=== PATIENT | male | born 1955 | race Caucasian/White ===

== ENCOUNTER 2018-05-01 17:52 | Observation (INO) | payer OTHER ==
[2018-05-01 17:59] VITALS: BMI 34.0
[2018-05-01] MEDS ORDERED: ACETAMINOPHEN 1000 MG/100 ML VIAL (NON FORMULARY) IVPB ONE (18:44)
[2018-05-01 18:48] LABS: BASO % 1.1 % (0-2.0); EOS % 3.7 % (0-4.5); HEMATOCRIT 45.2 % (35.4-49); LYMPH % 28.1 % (8-40); MCH 30.1 pg (25.7-33.7); MCHC 35.5 g/dl (32.0-35.9); MEAN CELL VOLUME 84.8 fl (80-96); MEAN PLT VOLUME 9.2 fl (7.5-11.1); MONO % 7.2 % (3.8-10.2); NEUT % 59.9 % (42.8-82.8); PLATELET COUNT 194 K/MM3 (134-434); RBC 5.33 M/mm3 (4.00-5.60); RDW 13.1 % (11.9-15.9); WHITE BLOOD COUNT 9.5 K/mm3 (4.0-10.0)
[2018-05-01] MEDS ORDERED: ACETAMINOPHEN INJECTION 100 ML IVPB ONE (18:55)
--- NOTE | 2018-05-01 19:04 | PDOC ---
History of Present Illness - General Chief Complaint: Weakness Stated Complaint: PAIN Time Seen by Provider: 05/01/18 18:13 History Source: Patient Exam Limitations: No Limitations - History of Present Illness Initial Comments: 05/01/18 18:58 The patient is a 62M with a PMH of HTN, HLD, who presents to the ER with complaints of neck pain. The patient states that he was in his normal state of health until around 1700 today, when he developed neck pain. He states that he became "restless" with his neck pain. He called EMS and waited outside for EMS to arrive. Upon EMS's arrival, he states that he developed L sided weakness. He currently complains of L sided weakness and the inability to stand or move on his own. He denies fever, chills, CP, SOB. tPA Exclusion Checklist 0-3hr - Time Elapsed Date last known well: 05/01/18 Time last known well: 17:00 Elaspsed time: Day(s) and 6 Hour(s) and 1 Minutes - Thrombolytic Therapy Candidate Is the patient eligible for Thrombolytic Therapy?: Yes - Exclusion Criteria 0-3hr SBP greater than 185 or DBP greater than 110mmHg despite tx: No Recent IC/spinal surgery,head trauma or stroke w/in last 3mo: No Hx of previous IC hemorrhage, IC neoplasm, AVM or aneurysm: No Active internal bleeding: No Blding diathesis(low plt ct, inc PTT,INR>1.7 or use of NOAC): No Symptoms suggest subarachnoid hemorrhage: No CT demonstrates multilobar infarct(>1/3 cerebral hemiphere): No Arterial puncture at noncompressible site in previous 7 days: No Blood glucose concentration less than 50mg/dL (2.7mmol/L): No - Relative Exclusion Criteria 0-3h Rapid improvement: Yes - Ineligibility reason(s) Reasons No tPA given: See reason(s) noted above (Symptoms not reproducible consistently) NIH Stroke Scale - Last Known Well Date/Time & Onset Date Last Known Well: 05/01/18 Time Last Known Well: 17:00 - Initial Evaluation Level of consciousness: Alert Ask patient the month and their age: Answers both correctly Ask patient to open & close eyes; make fist and let go: Obeys both correctly Best gaze (horizontal eye movement): Normal Visual field testing: No visual field loss Facial paresis (Show teeth/raise eyebrows/close eyes tight): Normal symmetrical movement Motor Function: Left Arm: No effort against gravity Motor Function: Right Arm: Normal (extends arm 90 (or 45) degrees for 10 seconds without drift Motor Function: Left Leg: No effort against gravity Motor Function: Right Leg: Normal (extends leg 30 degrees for 5 seconds without drift) Limb Ataxia: Present in two limbs Sensory(Use pinprick test arms,legs,trunk,face/side to side): Normal Best language (Describe picture, name items, read sentences): No Aphasia Dysarthria (read several words): Normal articulation Extinction and Inattention: No abnormality - Total Score NIH Stroke Scale Score: 8 Past History - Past Medical History Allergies/Adverse Reactions: Allergies Allergy/AdvReac Type Severity Reaction Status Date / Time simvastatin [From Zocor] Allergy Verified 05/01/18 17:59 Sulfa (Sulfonamide Allergy Verified 05/01/18 17:59 Antibiotics) Home Medications: Ambulatory Orders Atorvastatin Ca [Lipitor] 40 mg PO HS 05/01/18 Carvedilol 12.5 mg PO BID 05/01/18 Prasugrel HCl 10 mg PO DAILY 05/01/18 Valsartan/Hydrochlorothiazide [Valsartan-Hctz 320-12.5 mg Tab] 1 each PO DAILY 05/01/18 Cardiac Disorders: Yes ([place]) COPD: No HTN: Yes Hypercholesterolemia: Yes - Surgical History Cardiac Surgery: Yes (STENT X2) - Immunization History Immunization Up to Date: No - Suicide/Smoking/Psychosocial Hx Smoking History: Never smoked Have you smoked in the past 12 months: No Information on smoking cessation initiated: No Hx Alcohol Use: No Drug/Substance Use Hx: No Review of Systems - Review of Systems Able to Perform ROS?: Yes Is the patient limited Greenlandic proficient: No Constitutional: No: Chills, Fever HEENTM: No: Eye Pain, Blurred Vision Respiratory: No: Cough, Shortness of Breath Cardiac (ROS): No: Chest Pain, Palpitations ABD/GI: No: Nausea, Vomiting : No: Burning, Dysuria Musculoskeletal: Yes: Neck Pain (midline). No: Back Pain Neurological: Yes: Weakness (L sided). No: Headache, Numbness, Tingling *Physical Exam - Vital Signs Last Vital Signs Temp Pulse Resp BP Pulse Ox 98.0 F 79 16 154/114 H 96 05/01/18 17:55 05/01/18 17:55 05/01/18 17:55 05/01/18 17:55 05/01/18 17:55 - Physical Exam Comments: 05/01/18 19:04 GENERAL: Well developed, well nourished. Awake and alert. No acute distress. HEENT: Normocephalic, atraumatic. Hearing grossly normal. Moist mucous membranes. PERRLA, EOMI. No conjunctival pallor. Sclera are non-icteric. NECK: Supple. Limited ROM. No JVD. Midline tenderness to palpation CARDIOVASCULAR: Regular rate and rhythm. No murmurs, rubs, or gallops. . PULMONARY: No evidence of respiratory distress. Lungs clear to auscultation bilaterally. No wheezing, rales or rhonchi. ABDOMINAL: Soft. Non-tender. Non-distended. No rebound or guarding. GENITOURINARY: No CVA tenderness bilaterally. MUSCULOSKELETAL: Normal range of motion at all joints. No bony deformities or tenderness. EXTREMITIES: No cyanosis. No clubbing. No edema. No calf tenderness or swelling. SKIN: Warm and dry. Normal capillary refill. No rashes. No jaundice. NEUROLOGICAL: Alert, awake, appropriate. Cranial nerves 2-12 intact. No deficits to light touch and temperature in face, upper extremities and lower extremities. 5/5 strength in deltoids, biceps, triceps, quadriceps, hamstrings, and gastrocnemius on R side. 3/5 strength in deltoids, biceps, triceps, quadriceps, hamstrings, and gastrocnemius on L side. Normal speech. Gait is not observable. PSYCHIATRIC: Cooperative. Good eye contact. Appropriate mood and affect. Moderate Sedation - Procedure Monitoring Vital Signs: Procedure Monitoring Vital Signs Temperature 98.0 F 05/01/18 17:55 Pulse Rate 79 05/01/18 17:55 Respiratory Rate 16 05/01/18 17:55 Blood Pressure 154/114 H 05/01/18 17:55 O2 Sat by Pulse Oximetry (%) 96 05/01/18 17:55 ED Treatment Course - LABORATORY CBC & Chemistry Diagram: 05/01/18 18:37 05/01/18 18:37 - RADIOLOGY Radiology Studies Ordered: Category Date Time Status BRAIN CTA [CT] Stat CT Scan 05/01/18 18:28 Ordered NECK CTA [CT] Stat CT Scan 05/01/18 18:28 Ordered CHEST X-RAY PORTABLE* [RAD] Stat Radiology 05/01/18 18:28 Taken Medical Decision Making - Medical Decision Making 05/01/18 19:06 The patient is a 62M with a PMH of HTN and HLD who presents to the ER with sudden onset weakness w/ neck pain concerning for dissection. Of note, the patient has intentional movement away from pain on both sides, equally. He seems well appearing when distracted. Due to his medical history and story, vertebral artery dissection must be ruled out. Giving pain medication and will obtain CT's. Pending labs and imaging. There is a very small concern for TIA due to the sudden onset of symptoms. However, the patient has muscle tone with distraction on exam but he refuses/ cannot stand up on his own. 05/01/18 19:40 Pt had Cr of 1.4. Signed for CTA. Pt reassessed in CT and states that his symptoms have resolved. Airport Attendant strength was 5/5 compared to weaker earlier. Pending CTA. CXR negative on preliminary read. CBC CMP WNL except for Cr which is 1.4. 05/01/18 21:38 Pending CTA read. 05/01/18 22:46 CTA negative. Case d/w Neuro, Dr. Pratt, who agrees with obs. Will place order for MRI. Pt endorsed to Dr. Soria for admission. *DC/Admit/Observation/Transfer Diagnosis at time of Disposition: TIA (transient ischemic attack) - Discharge Dispostion Condition at time of disposition: Guarded Decision to Admit order: Yes - Referrals - Patient Instructions - Post Discharge Activity
[2018-05-01 19:25] LABS: ALK PHOS 95 U/L (45-117); ANION GAP 9 MMOL/L (8-16); BILIRUBIN,TOTAL 0.7 mg/dL (0.2-1); BLOOD UREA NITROGEN 21 mg/dL (7-18); CALCIUM 9.3 mg/dL (8.5-10.1); CHLORIDE 98 mmol/L (98-107); CO2 28 mmol/L (21-32); CREATININE 1.4 mg/dL (0.55-1.3); POTASSIUM 4.1 mmol/L (3.5-5.1); SGOT/AST 12 U/L (15-37); SGPT/ALT 39 U/L (13-61); SODIUM 135 mmol/L (136-145); TOT PROT 7.8 g/dl (6.4-8.2)
[2018-05-01 19:28] LABS: GLUCOSE,RANDOM 431 mg/dL (74-106)
[2018-05-01] MEDS ORDERED: SODIUM CHLORIDE 0.9% 1000 ML INFUS.BAG IV ONE ×2 (19:41→23:05)
[2018-05-01] MEDS ORDERED: KETOROLAC TROMETHAMINE 30 MG/1 ML VIAL IVPUSH ONE (20:29)
[2018-05-01] MEDS ORDERED: KETOROLAC TROMETHAMINE 30 MG/1 ML VIAL ONE (20:30)
--- NOTE | 2018-05-01 20:37 | PDOC ---
Attending Attestation - Resident Resident Name: Michael Hall - ED Attending Attestation I have performed the following: I have examined & evaluated the patient, The case was reviewed & discussed with the resident, I agree w/resident's findings & plan, Exceptions are as noted - Medical Decision Making 05/01/18 22:58 62-year-old male developed neck pain and then developed left arm and leg weakness. He's never had any prior episodes of this. CAT scan of the head did not show any acute intracranial pathology Patient denies being diabetic and states that the highest glucose he ever had was 125. [id number] this evening the pt's left sided weakness resolved shortly after it began and his NIHSS is zero currently imp TIA,hyerglycemia <Oriana Lira - Last Filed: 05/01/18 22:58> - HPI HPI: 05/01/18 21:48 The patient is a 62 year old male, with a significant past medical history of HTN and HLD, who presents to the emergency department with, neck pain and left sided weakness. Allergies: Simvastatin, Sulfa - Physicial Exam PE: 05/01/18 21:48 GENERAL: Well-appearing, well-nourished. No apparent distress. HEENT: Normocephalic, atraumatic. PERRL, EOM intact. CARDIOVASCULAR: Normal S1, S2. Regular rate and rhythm. PULMONARY: Clear to auscultation bilaterally. ABDOMEN: Soft, non-distended, non-tender. EXTREMITIES: Normal ROM in all four extremities. No gross deformities. SKIN: Warm, dry. No rash NEUROLOGICAL: No focal neurological deficits. - Medical Decision Making 05/01/18 22:[address] Pratt neuro penetration tester, awaiting call back. Patient will be admitted to hospitalist for further evaluation. <Elizabeth Rashid - Last Filed: 05/02/18 01:36> Attestations - Attestations 05/01/18 21:48 Documentation prepared by Elizabeth Rashid, acting as behavioral medical director for Oriana Lira MD. <Elizabeth Rashid - Last Filed: 05/02/18 01:36>
--- NOTE | 2018-05-01 23:00 | PN ---
Teaching Attending Note Name of Resident: Merly Ha ATTENDING PHYSICIAN STATEMENT I saw and evaluated the patient. I reviewed the resident's note and discussed the case with the resident. I agree with the resident's findings and plan as documented. SUBJECTIVE: Seen and examined; please refer to resident documentation for further historical information. Briefly, this is a 62 y/o male presenting to the ER with neck pain and L-sided weakness. Neck pain at 5PM at base of neck radiating to shoulder blades. Sharp, constant, nonburning, aleviated by raising his arms. Stated pain ws severe in nature. No headaches, dizziness. L-sided weakness started in the ER with LUE/LLE weakness; needed assist from staff to xfer. Was sudden. No facial droop, slurred speech, etc. NIHSS 0 at this juncture; initial per ED documentation. 10 sys ROS done and negative aside from HPI PMH (HTN, HLD, CAD s/p stent @ [facility] 4 years ago), PSH, Social hx, Family hx reviewed Medication reconciliation pending (coreg, atorva, valsartan/hctz/prasugrel) OBJECTIVE: 10 sys ROS done and negative aside from HPI NAD, AAO, resting comfortably in bed RRR s1/2 no mgr NC AT EOMI PERRLA Lungs CTAB, w/ sym exp NT ND +BS Normal mood, appropriate behavior Labs show normal CBC, Cr 1.4, glucose 431 CTA head and neck reviewed; unremarkable study with neuro findings but incidentally found 8mm pulmonary nodule RUL and recommended further CT to evaluate CXR reviewed EKG reviewed ASSESSMENT AND PLAN: Patient presents with neck pain and L-sided weakness (resolved); found to have hypertensive urgency vs. emergency 1) L-sided weakness, r/o TIA -Check MRI, echo, consult neurology. No need for dopplers as had CTA which didn 't show significant stenosis -Neurology is aware of the patient and will see him in the AM -Symptoms resolved. Neuro checks and seizure precuations. 2) HTN Urgency vs. Emergency -Given the timing in relation to the symptoms it is less likely that this is an emergency as the spike to 180 wasn't at the same time of the L-sided weakness. -Continue coreg, use PRNs for now, and monitor; titrate up if needed but has been in 150s. He had slightly elevated creatinine to 1.4 and is on nephrotoxic med at home with valsartan/HCTZ. Will hold that for now and resume when clinically appropriate. -Checking echo 3) Neck Pain -Reviewed CTA; no new issues. Followup with neuro to see if they wish for any neck MRI but denies radiculopathy, etc. 4) HTN -Discussed #2 5) HLD -Continue home statin; check lipids 6) Hx CAD -Continue BB 7) Elevated Cr -Hydrated in ER; followup repeat and decide how to proceed with the valsartan/ HCTZ combo -Has reasons to have CKD (likely DM, uncontrolled HTN, obesity, etc.) 8) Likely DM with hyperglycemia -Check A1c; SSI and start MTF if needed prior to DC 9) Obesity -Quality Facilitator prior to DC 10) Pulmonary Nodule -8mm RUL; FU OP with chest CT as recommended FENA -PO fluids -PRN replete -Heart healthy -As tolerated; PT consult Full Code
[2018-05-01] MEDS ORDERED: INSULIN REGULAR HUMAN 100 UNITS/ML *VIAL ONE (23:29)
--- NOTE | 2018-05-01 23:45 | HP ---
CHIEF COMPLAINT: neck pain and L u/l extremity weakness PCP: Dr. Martinez Cardio- Dr. Sherice Taylor HISTORY OF PRESENT ILLNESS: 62M w/ pmhx of HTN, HLD, CAD (s/p stents x2 placed 4 years ago) presented with neck pain and L upper and lower extremity weakness. Pt's symptoms started with pain at the base of his neck at 5pm today. At the time, he was sitting down watching TV at home. Pt described the pain as 10/10, sharp, radiating to b/l shoulder blades and alleviated when he raises both of his arms behind his head. He states he did not take anything for the pain. Upon arrival in the ED at about 6pm, he started experience L upper and lower extremity weakness that lasted for about 2.5 hours. When this happened, he stated he was unable to get up and walk himself and as a result, had to be carried by ED staff. At the time he denied noticing any facial droop or slurred speech. He did admit to L sided numbness. Pt denies similar symptoms in the past. Upon exam, his L upper/lower extremity symptoms had since resolved. He denies changes in sensation any numbness. Denies headache/dizziness, f/c, n/v, chest pain, sob, abd pain, urinary/bowel symptoms, blood in urine/stool, numbness/ tingling in extremities. ER course was notable for: (1) BP 184/88, Glu 431 (2) IV Tylenol, IV Toradol 30 mg IVP, NS x1L, Neuro consult ordered (3) Novolog 10U IM given Recent Travel: Denies PAST MEDICAL HISTORY: HTN HLD CAD PAST SURGICAL HISTORY: Stents x2 (4 years ago at [facility]) Social History: Smoking: Former smoker, quit 25 years ago, used to smoke 1PPD Alcohol: Occassional drinker, beer Drugs: Denies Family History: Father- [place] @ 84, at 90 Allergies simvastatin [From Zocor] Allergy (Verified 05/01/18 17:59) Sulfa (Sulfonamide Antibiotics) Allergy (Verified 05/01/18 17:59) HOME MEDICATIONS: Home Medications Medication Instructions Recorded Atorvastatin Ca [Lipitor] 40 mg PO HS 05/01/18 Carvedilol 12.5 mg PO BID 05/01/18 Prasugrel HCl 10 mg PO DAILY 05/01/18 Valsartan/Hydrochlorothiazide 1 each PO DAILY 05/01/18 [Valsartan-Hctz 320-12.5 mg Tab] REVIEW OF SYSTEMS CONSTITUTIONAL: Denies fever, chills, diaphoresis, generalized weakness, loss of appetite HEENT: Denies difficulty swallowing, ear pain, eye pain, visual/hearing changes CARDIOVASCULAR: Denies chest pain, palpitations, irregular heart rate, lightheadedness, peripheral edema RESPIRATORY: denies sob, urena, orthopnea, wheezing, cough GASTROINTESTINAL: Denies abdominal distension, vomiting, constipation, n/v GENITOURINARY: Denies hematuria, dysuria MUSCULOSKELETAL: Admits to neck pain NEUROLOGIC: Denies headache, denies dizziness, mental status changes, bladder/ bowel incontinence, Denies facial droop, slurred speech PHYSICAL EXAMINATION Vital Signs - 24 hr 05/01/18 05/01/18 17:55 20:20 Temperature 98.0 F Pulse Rate 79 Pulse Rate [ 76 Left Radial] Respiratory 16 18 Rate Blood Pressure 154/114 H Blood Pressure 184/88 H [Left Arm] O2 Sat by Pulse 96 97 Oximetry (%) GENERAL: AAOx3. NAD. Resting comfortably. HEENT: AT/NC. EOMI. MAR[place]. Moist mucus membranes. Facial muscles intact. Tongue midline. NECK: Normal range of motion, supple without lymphadenopathy, JVD, or masses. LUNGS: CTA B/L. No wheezes/rhonchi heard. HEART: RRR. Normal S1, S2. No murmurs heard. ABDOMEN: Obese. Soft, NT/ND. +BS in all 4Qs. No masses noted. MUSCULOSKELETAL: No peripheral edema noted. No visible ecchymoses or deformity seen. UPPER EXTREMITIES: 2+ radial pulses, warm, well-perfused. No cyanosis. No clubbing. No peripheral edema. +5/5 shoulder flexion/extension/abduction/ adduction, +5/5 elbow flexion/extension, +5/5 hand director rehabilitation program LOWER EXTREMITIES: 2+ dorsalis pulses, warm, well-perfused. +5/5 hip flexion/ extension, +5/5 knee flexion/extension, +5/5 plantarflexion/dorsiflexion NEUROLOGICAL: B/L sensation intact. No facial droop. Normal speech. PSYCHIATRIC: Cooperative. Good eye contact. Appropriate mood and affect. SKIN: Warm, dry, normal turgor, no rashes or lesions noted, normal capillary refill. Laboratory Results - last 24 hr 05/01/18 05/01/18 05/01/18 18:37 18:37 23:26 WBC 9.5 RBC 5.33 Hgb 16.0 Hct 45.2 MCV 84.8 MCH 30.1 MCHC 35.5 RDW 13.1 Plt Count 194 MPV 9.2 Absolute Neuts (auto) 5.7 Neutrophils % 59.9 Lymphocytes % 28.1 Monocytes % 7.2 Eosinophils % 3.7 Basophils % 1.1 Nucleated RBC % 0 Sodium 135 L Potassium 4.1 Chloride 98 Carbon Dioxide 28 Anion Gap 9 BUN 21 H Creatinine 1.4 H Creat Clearance w eGFR 51.02 POC Glucometer 351 Random Glucose 431 H* Calcium 9.3 Total Bilirubin 0.7 AST 12 L ALT 39 Alkaline Phosphatase 95 Creatine Kinase 125 Troponin I < 0.02 Total Protein 7.8 Albumin 4.0 CONSULT: Neuro- Dr. Pratt IMAGING: * Head/Neck CTA: Tiny calcified plaques at the right common carotid bifurcation without evidence of hemodynamically significant stenosis. Left common carotid bifurcation appears unremarkable. Intracranially, no focal stenosis, aneurysm or major artery cutoff is seen within the central intracranial arterial circulation. 8mm pulmonary nodule in the included right upper lobe, anteriorly ASSESSMENT/PLAN: 62M w/ pmhx of HTN, HLD, CAD (s/p stents x2 placed 4 years ago) presented with neck pain and L upper and lower extremity weakness. #Left upper/lower extremity weakness, r/o TIA; Likely resolved as pt is currently asymptomatic. -Head/Neck CTA noted above; unremarkable for acute pathology. -Neuro consulted -Brain MRI ordered -Carotid duplex ordered -Echo ordered -Vit B12/B6, Lipid profile, RPR, Mag, Phos ordered -Given [facility] Stroke Dysphagia screen ([facility]-SDS), pt has a low risk of dysphagia. -PT ordered Cont home med: Atorvastatin 40 mg PO HS -Start Aspirin 81 mg PO QD #Hypertensive urgency vs. emergency -Pt symptoms could be attributed to HTN as he was found to have BP of 154/118 -- > 184/88. -Carvedilol 12.5 mg given ONCE (pt's nighttime dose) -May use Hydralazine 10 mg IVP PRN -Keep systolic BP ~140-160s Cont home med: Carvedilol 12.5 mg PO BID #CHARLES; BUN/Cr 21/1.4, baseline unknown -Will hold home Losartan-HCTZ for now -Avoid nephrotoxic meds -recheck BMP in AM #Neck pain; Resolving. -Head/Neck CTA noted above; unremarkable. -Tylenol 650 mg PO Q6H PRN for pain #Hyperglycemia; last known A1c 7.1% (according to patient) -Most recent BGM 351; Novolog 10U given -A1c ordered -BGMs/ISS ACHS -Pt will need outpatient follow up with DM management; consider Metformin upon d /c #HLD -Lipid panel ordered Cont home med: Atorvastatin 40 PO HS #CAD Cont home med: Prasugrel 10 mg PO QD #Obesity; BMI 34 -Weight loss counseling #Prophylaxis -Lovenox 50 SQ QD #FEN -PO hydration -recheck BMP in AM (Cr, Glu) -Sodium-controlled diet dispo -admit to tele obs -medications have been reconciled Visit type - Emergency Visit Emergency Visit: Yes ED Registration Date: 05/01/18 Care time: The patient presented to the Emergency Department on the above date and was hospitalized for further evaluation of their emergent condition. - New Patient This patient is new to me today: Yes Date on this admission: 05/02/18 - Critical Care Critical Care patient: No
[2018-05-02] MEDS ORDERED: INSULIN (NOVOLOG) ASPART 100 UNITS/ML 10ML VIAL SQ ONE (00:09)
[2018-05-02] MEDS ORDERED: CARVEDILOL 12.5 MG TABLET (FP) PO ONE (00:14)
[2018-05-02] MEDS ORDERED: ATORVASTATIN CA 40 MG TABLET (FP) PO ONE (00:14)
[2018-05-02] MEDS ORDERED: ACETAMINOPHEN 325 MG TABLET (FP) PO PRN (00:56)
[2018-05-02] MEDS ORDERED: CARVEDILOL 12.5 MG TABLET (FP) ONE (01:03)
[2018-05-02] MEDS ORDERED: ATORVASTATIN CA 40 MG TABLET (FP) ONE (01:03)
[2018-05-02 03:04] LABS: CHOLESTEROL 145 mg/dL (50-200); HDL CHOLESTEROL 38 mg/dL (40-60); TRIGLYCERIDES 273 mg/dL (0-150)
[2018-05-02] MEDS ORDERED: ACETAMINOPHEN 325 MG TABLET (FP) ONE (04:53)
[2018-05-02 06:42] LABS: BASO % 0.4 % (0-2.0); EOS % 1.3 % (0-4.5); HEMOGLOBIN 14.2 GM/dL (11.7-16.9); LYMPH % 26.5 % (8-40); MCH 29.6 pg (25.7-33.7); MCHC 35.4 g/dl (32.0-35.9); MEAN CELL VOLUME 83.7 fl (80-96); MEAN PLT VOLUME 9.2 fl (7.5-11.1); MONO % 6.3 % (3.8-10.2); NEUT % 65.5 % (42.8-82.8); PLATELET COUNT 162 K/MM3 (134-434); RBC 4.78 M/mm3 (4.00-5.60); RDW 12.8 % (11.9-15.9); WHITE BLOOD COUNT 9.9 K/mm3 (4.0-10.0)
[2018-05-02 07:21] LABS: ALBUMIN 3.4 g/dl (3.4-5.0); ALK PHOS 75 U/L (45-117); ANION GAP 5 MMOL/L (8-16); BILIRUBIN,TOTAL 0.6 mg/dL (0.2-1); BLOOD UREA NITROGEN 16 mg/dL (7-18); CALCIUM 8.3 mg/dL (8.5-10.1); CHLORIDE 104 mmol/L (98-107); CO2 30 mmol/L (21-32); CREATININE 1.1 mg/dL (0.55-1.3); GLUCOSE,RANDOM 197 mg/dL (74-106); PHOSPHOROUS 2.9 mg/dL (2.5-4.9); POTASSIUM 3.9 mmol/L (3.5-5.1); SGOT/AST 13 U/L (15-37); SGPT/ALT 31 U/L (13-61); SODIUM 139 mmol/L (136-145); TOT PROT 6.8 g/dl (6.4-8.2)
[2018-05-02] MEDS: INSULIN SLIDING SCALE (NOVOLOG) 1 VIAL SQ SCH ×2 (07:24→11:22)
--- NOTE | 2018-05-02 09:18 | CONSULT ---
Consult - text type - Consultation Consultation Note: Neurology CHIEF COMPLAINT: neck pain and L u/l extremity weakness HISTORY OF PRESENT ILLNESS: 62M w/ pmhx of HTN, HLD, CAD (s/p stents x2 placed 4 years ago) presented with neck pain and L upper and lower extremity weakness. Pt's symptoms started with pain at the base of his neck at 5pm day of admission. At the time, he was sitting down watching TV at home. Pt described the pain as 10/10, sharp, radiating to b/l shoulder blades and alleviated when he raises both of his arms behind his head. He stated he did not take anything for the pain. Reportedly with LUE discomfort. At the time he denied noticing any facial droop or slurred speech. He did admit to L sided numbness. Pt denies similar symptoms in the past. CTA head and neck completed and without acute changes. Neurologically at baseline and without deficits. He does have hyperglycemia and advised to seek further treatment. Recent Travel: Denies PAST MEDICAL HISTORY: HTN HLD CAD PAST SURGICAL HISTORY: Stents x2 (4 years ago at [facility]) Social History: Smoking: Former smoker, quit 25 years ago, used to smoke 1PPD Alcohol: Occassional drinker, beer Drugs: Denies Family History: Father- SD @ 84, at 88 Allergies simvastatin [From Zocor] Allergy (Verified 05/01/18 17:59) Sulfa (Sulfonamide Antibiotics) Allergy (Verified 05/01/18 17:59) HOME MEDICATIONS: Home Medications Medication Instructions Recorded Atorvastatin Ca [Lipitor] 40 mg PO HS 05/01/18 Carvedilol 12.5 mg PO BID 05/01/18 Prasugrel HCl 10 mg PO DAILY 05/01/18 Valsartan/Hydrochlorothiazide 1 each PO DAILY 05/01/18 [Valsartan-Hctz 320-12.5 mg Tab] REVIEW OF SYSTEMS CONSTITUTIONAL: Denies fever, chills, diaphoresis, generalized weakness, loss of appetite HEENT: Denies difficulty swallowing, ear pain, eye pain, visual/hearing changes CARDIOVASCULAR: Denies chest pain, palpitations, irregular heart rate, lightheadedness, peripheral edema RESPIRATORY: denies sob, urena, orthopnea, wheezing, cough GASTROINTESTINAL: Denies abdominal distension, vomiting, constipation, n/v GENITOURINARY: Denies hematuria, dysuria MUSCULOSKELETAL: Admits to neck pain NEUROLOGIC: Denies headache, denies dizziness, mental status changes, bladder/ bowel incontinence, Denies facial droop, slurred speech PHYSICAL EXAMINATION Vital Signs Period Temp Pulse Resp BP Sys/Wilcox Pulse Ox Last 24 Hr 98.0 F-98.3 F 76-86 16-18 143-184/88-114 96-98 GENERAL: AAOx3. NAD. Resting comfortably. HEENT: AT/NC. EOMI. MARIALUISA. Moist mucus membranes. Facial muscles intact. Tongue midline. NECK: Normal range of motion, supple without lymphadenopathy, JVD, or masses. LUNGS: CTA B/L. No wheezes/rhonchi heard. HEART: RRR. Normal S1, S2. No murmurs heard. ABDOMEN: Obese. Soft, NT/ND. +BS in all 4Qs. No masses noted. MUSCULOSKELETAL: No peripheral edema noted. No visible ecchymoses or deformity seen. UPPER EXTREMITIES: 2+ radial pulses, warm, well-perfused. No cyanosis. No clubbing. No peripheral edema. +5/5 shoulder flexion/extension/abduction/ adduction, +5/5 elbow flexion/extension, +5/5 hand manager park LOWER EXTREMITIES: 2+ dorsalis pulses, warm, well-perfused. +5/5 hip flexion/ extension, +5/5 knee flexion/extension, +5/5 plantarflexion/dorsiflexion NEUROLOGICAL: CN intact, B/L sensation intact. No facial droop. Normal speech, strength equal 5/5 in UE and LE PSYCHIATRIC: Cooperative. Good eye contact. Appropriate mood and affect. SKIN: Warm, dry, normal turgor, no rashes or lesions noted, normal capillary refill. Laboratory Results - last 24 hr 05/01/18 05/01/18 05/01/18 18:37 18:37 23:26 WBC 9.5 RBC 5.33 Hgb 16.0 Hct 45.2 MCV 84.8 MCH 30.1 MCHC 35.5 RDW 13.1 Plt Count 194 MPV 9.2 Absolute Neuts (auto) 5.7 Neutrophils % 59.9 Lymphocytes % 28.1 Monocytes % 7.2 Eosinophils % 3.7 Basophils % 1.1 Nucleated RBC % 0 Sodium 135 L Potassium 4.1 Chloride 98 Carbon Dioxide 28 Anion Gap 9 BUN 21 H Creatinine 1.4 H Creat Clearance w eGFR 51.02 POC Glucometer 351 Random Glucose 431 H* Calcium 9.3 Total Bilirubin 0.7 AST 12 L ALT 39 Alkaline Phosphatase 95 Creatine Kinase 125 Troponin I < 0.02 Total Protein 7.8 Albumin 4.0 CONSULT: Neuro- Dr. Pratt IMAGING: * Head/Neck CTA: Tiny calcified plaques at the right common carotid bifurcation without evidence of hemodynamically significant stenosis. Left common carotid bifurcation appears unremarkable. Intracranially, no focal stenosis, aneurysm or major artery cutoff is seen within the central intracranial arterial circulation. 8mm pulmonary nodule in the included right upper lobe, anteriorly ASSESSMENT/PLAN: 62M w/ pmhx of HTN, HLD, CAD (s/p stents x2 placed 4 years ago) presented with neck pain and L upper and lower extremity weakness. Pt's symptoms started with pain at the base of his neck at 5pm day of admission. At the time, he was sitting down watching TV at home. Pt described the pain as 10/10, sharp, radiating to b/l shoulder blades and alleviated when he raises both of his arms behind his head. He stated he did not take anything for the pain. Reportedly with LUE discomfort. At the time he denied noticing any facial droop or slurred speech. He did admit to L sided numbness. Pt denies similar symptoms in the past. CTA head and neck completed and without acute changes. Neurologically at baseline and without deficits. He does have hyperglycemia and advised to seek further treatment. No deficits, and CTA negative, will d/c MRI. Follow up carotid/echo, symptoms more likely hypertensive urgency. BP control, goal < 150/ 90 for now, <130/80 as outpatient. LDL 80, continue current statin. DVT ppx.
[2018-05-02] MEDS ORDERED: LISINOPRIL 10 MG TABLET (FP) PO ONE (09:42)
[2018-05-02] MEDS ORDERED: CARVEDILOL 12.5 MG TABLET (FP) PO SCH (10:00)
[2018-05-02] MEDS ORDERED: VALSARTAN 160 MG TABLET (UD) PO SCH (10:00)
[2018-05-02] MEDS ORDERED: ENOXAPARIN NA (PORCINE) 40 MG/0.4 ML DISP.SYRIN SQ SCH (10:00)
[2018-05-02] MEDS ORDERED: PRASUGREL HCL 10 MG TAB PO SCH (10:00)
[2018-05-02] MEDS ORDERED: ASPIRIN 81 MG CHEWABLE TABLETS PO SCH (10:00)
[2018-05-02] MEDS ORDERED: VALSARTAN 80 MG TABLET (UD) ONE (11:15)
--- NOTE | 2018-05-02 13:31 | PN ---
Physical Exam: SUBJECTIVE: Patient seen and examined at bedside. Pt resting in bed, denies any acute complaints at this moment. Denies chest pain or shortness of breath. OBJECTIVE: Vital Signs Period Temp Pulse Resp BP Sys/Wilcox Pulse Ox Last 24 Hr 98 F-98.3 F 76-86 16-18 143-184/88-114 96-98 GENERAL: NAD EYES: extraocular movements intact, sclera anicteric, conjunctiva clear. NECK: No JVD appreciated. LUNGS: CTAB. Good inspiratory effort HEART: RRR S1S2 ABDOMEN: NDNT EXTREMITIES: No CCE. 3+ knee jerk b/l. MSK: Strength 5/5 upper/lower extremities. SILT throughout. SKIN: Warm, dry, normal turgor, no rashes or lesions noted Laboratory Results - last 24 hr 05/01/18 05/01/18 05/01/18 18:37 18:37 23:26 WBC 9.5 RBC 5.33 Hgb 16.0 Hct 45.2 MCV 84.8 MCH 30.1 MCHC 35.5 RDW 13.1 Plt Count 194 MPV 9.2 Absolute Neuts (auto) 5.7 Neutrophils % 59.9 Lymphocytes % 28.1 Monocytes % 7.2 Eosinophils % 3.7 Basophils % 1.1 Nucleated RBC % 0 Sodium 135 L Potassium 4.1 Chloride 98 Carbon Dioxide 28 Anion Gap 9 BUN 21 H Creatinine 1.4 H Creat Clearance w eGFR 51.02 POC Glucometer 351 Random Glucose 431 H* Calcium 9.3 Phosphorus Magnesium Total Bilirubin 0.7 AST 12 L ALT 39 Alkaline Phosphatase 95 Creatine Kinase 125 Troponin I < 0.02 Total Protein 7.8 Albumin 4.0 Triglycerides 273 H Cholesterol 145 Total LDL Cholesterol 80 HDL Cholesterol 38 L Vitamin B12 TSH RPR Titer 05/02/18 05/02/18 05/02/18 05:30 05:30 08:24 WBC 9.9 RBC 4.78 Hgb 14.2 Hct 40.0 MCV 83.7 MCH 29.6 MCHC 35.4 RDW 12.8 Plt Count 162 MPV 9.2 Absolute Neuts (auto) 6.5 Neutrophils % 65.5 Lymphocytes % 26.5 Monocytes % 6.3 Eosinophils % 1.3 Basophils % 0.4 Nucleated RBC % 0 Sodium 139 Potassium 3.9 Chloride 104 Carbon Dioxide 30 Anion Gap 5 L BUN 16 Creatinine 1.1 Creat Clearance w eGFR > 60 POC Glucometer Random Glucose 197 H Calcium 8.3 L Phosphorus 2.9 Magnesium 2.0 Total Bilirubin 0.6 AST 13 L ALT 31 Alkaline Phosphatase 75 Creatine Kinase Troponin I Total Protein 6.8 Albumin 3.4 Triglycerides Cholesterol Total LDL Cholesterol HDL Cholesterol Vitamin B12 549 TSH 1.18 RPR Titer Nonreactive 05/02/18 11:19 WBC RBC Hgb Hct MCV MCH MCHC RDW Plt Count MPV Absolute Neuts (auto) Neutrophils % Lymphocytes % Monocytes % Eosinophils % Basophils % Nucleated RBC % Sodium Potassium Chloride Carbon Dioxide Anion Gap BUN Creatinine Creat Clearance w eGFR POC Glucometer 285 Random Glucose Calcium Phosphorus Magnesium Total Bilirubin AST ALT Alkaline Phosphatase Creatine Kinase Troponin I Total Protein Albumin Triglycerides Cholesterol Total LDL Cholesterol HDL Cholesterol Vitamin B12 TSH RPR Titer Active Medications Generic Name Dose Route Start Last Admin Trade Name Freq PRN Reason Stop Dose Admin Acetaminophen 650 mg 05/02/18 00:56 Tylenol - PO Q6H PRN Fever Or Pain Level 1-5 Aspirin 81 mg 05/02/18 10:00 05/02/18 09:24 Asa - PO 81 mg DAILY XIOMARA Administration Atorvastatin Calcium 40 mg 05/02/18 22:00 Lipitor - PO HS XIOMARA Carvedilol 12.5 mg 05/02/18 10:00 05/02/18 09:25 Coreg - PO 12.5 mg BID XIOMARA Administration Ezetimibe 10 mg 05/02/18 22:00 Zetia - PO HS XIOMARA Enoxaparin Sodium 40 mg 05/02/18 10:00 05/02/18 09:25 Lovenox - SQ 40 mg DAILY XIOMARA Administration Insulin Aspart 1 vial 05/02/18 07:00 05/02/18 11:22 Novolog Vial Sliding Scale - SQ 6 unit ACHS XIOMARA Administration Protocol Prasugrel 10 mg 05/02/18 10:00 05/02/18 09:25 Effient - PO 10 mg DAILY XIOMARA Administration Valsartan 320 mg 05/02/18 10:00 05/02/18 11:21 Diovan - PO 320 mg DAILY XIOMARA Administration ASSESSMENT/PLAN: 62M w/ pmhx of HTN, HLD, CAD (s/p stents x2 placed 4 years ago) presented with neck pain and L upper and lower extremity weakness. #Left upper/lower extremity weakness, r/o TIA; Likely resolved as pt is currently asymptomatic. -Head/Neck CTA noted above; unremarkable for acute pathology. -Dr Pratt On board---> No deficits, and CTA negative, will d/c MRI. Follow up carotid/echo, symptoms more likely hypertensive urgency. BP control, goal < 150/90 for now, <130/80 as outpatient. LDL 80, continue current statin. DVT ppx. -Carotid duplex pending -Echo pending - Atorvastatin 40 mg PO HS -Aspirin 81 mg PO QD #Hypertensive urgency vs. emergency -Pt symptoms could be attributed to HTN as he was found to have BP of 154/118 -- > 184/88. -May use Hydralazine 10 mg IVP PRN -Keep systolic BP ~140-160s - Carvedilol 12.5 mg PO BID increased to 25 PO BID #CHARLES; BUN/Cr 21/1.4 on admission, baseline unknown - Valsartan 320 resumed as creatinine now 1.1 -Avoid nephrotoxic meds -recheck BMP in AM #DM; previous A1c 7.1% (according to patient) - Novolog 10U given in ED -A1c 9.6% -BGMs/ISS ACHS -Pt will need outpatient follow up with DM management; consider Metformin upon d /c. Will require another DM agent as A1C level 9.6% Consider Jardiance as has known cardiovascular benefits in addition to Metformin 1000 BID. #HLD -Lipid panel ordered Cont home med: Atorvastatin 40 PO HS. Will add Zetia as LDL not at goal. #CAD Prasugrel 10 mg PO QD #Obesity; BMI 34 -Weight loss counseling #Prophylaxis -Lovenox 40 SQ QD #FEN -PO hydration -recheck BMP in AM -Sodium-controlled diet Visit type - Emergency Visit Emergency Visit: Yes ED Registration Date: 05/01/18 Care time: The patient presented to the Emergency Department on the above date and was hospitalized for further evaluation of their emergent condition. - New Patient This patient is new to me today: Yes Date on this admission: 05/02/18 - Critical Care Critical Care patient: No - Discharge Referral Referred to [facility] No
--- NOTE | 2018-05-02 13:49 | ECHO ---
Name: JYOTHI GOMEZ Exam:Adult Echocardiogram Study Date: 05/02/2018 08:29 AM Age: 62 yrs Reason For Study: TIA Height: 66 in Weight: 211 lb BSA: 2.0 m2 MMode/2D Measurements & Calculations RVDd: 2.7 cm Ao root diam: 3.6 cm IVSd: 0.99 cm LA dimension: 4.3 cm LVIDd: 4.8 cm ACS: 2.1 cm LVIDs: 2.6 cm LVPWd: 0.92 cm IVSs: 1.4 cm LVPWs: 1.3 cm EDV(Teich): 109.5 ml ESV(Teich): 25.2 ml Doppler Measurements & Calculations MV E max michael: 61.2 cm/sec Ao V2 max: 103.4 cm/sec MV A max michael: 75.0 cm/sec Ao max P.3 mmHg MV E/A: 0.82 Ao V2 mean: 72.3 cm/sec Ao mean P.3 mmHg Ao V2 VTI: 18.8 cm TR max michael: 222.0 cm/sec PA V2 max: 135.7 cm/sec TR max P.8 mmHg PA max P.4 mmHg Med Peak E' Michael: 6.1 cm/sec Med E/e': 10.0 Lat Peak E' Michael: 5.7 cm/sec Lat E/e': 10.8 Procedure A complete two-dimensional transthoracic echocardiogram was performed (2D, M-mode, Doppler and color flow Doppler). Left Ventricle The left ventricular size, thickness and function are normal. The left ventricular ejection fraction is normal. The transmitral spectral Doppler flow pattern is suggestive of impaired LV relaxation. The le ft ventricular wall motion is normal. Right Ventricle The right ventricle is normal in size and function. There is normal right ventricular wall thickness. Atria The left atrium is mildly dilated. Right atrial size is normal. Mitral Valve The mitral valve is normal in structure and function. There is trace mitral regurgitation. Tricuspid Valve The tricuspid valve is normal in structure and function. There is trace tricuspid regurgitation. Aortic Valve The aortic valve is normal in structure and function. No aortic regurgitation is present. Pulmonic Valve The pulmonic valve is not well visualized. Great Vessels The aortic root is normal size. Pericardium/Pleura There is no pericardial effusion. Interpretation Summary The left ventricular size, thickness and function are normal The left ventricular wall motion is normal. The right ventricle is normal in size and function. Jonah Lucas 05/02/2018 01:49 PM
[2018-05-02] MEDS ORDERED: CARVEDILOL 25 MG TABLET (FP) PO SCH (14:11)
--- NOTE | 2018-05-02 14:25 | PN ---
Teaching Attending Note Name of Resident: Mandeep Kiser ATTENDING PHYSICIAN STATEMENT I saw and evaluated the patient. I reviewed the resident's note and discussed the case with the resident. I agree with the resident's findings and plan as documented. SUBJECTIVE: No fever or chills . No weakness, numbness or tingling. minimal pain in lower neck ( paraspinal ) with movement of upper extremities . No visual changes , or CALDWELL , no dysphagia . No events like this in past. He denies DM history , but his A1c was 7.1 8 months ago, he was never put on meds OBJECTIVE: NAD , AAox3 Cv: RRR, no bruits over carotids Lungs: CTAB Ext : no edema neuro : EOMI, round equal pupils, reactive to light , no faicla droop. uvula and tongue at mid line. strength 5/5 in uper and lower extremities proximally and distally. sensation to light touch nl. reflexes 3+ knee jerk b/l, 2+ biceps and BR b/l. nose to finger NL. MS: No TTP over C spine and upper T spine. No TTP over upper thoracic and cervical paraspinal muscles EKG : with sinus rhythm, ASSESSMENT AND PLAN: 62 yo man with h/o HTN, DM, HLP, and CAD s/p stenting, who presented with neck pain and developed L upper extremity and LLE weakness x 3 hours. 1- L sided weakness: possible TIA. Now neurologiclaly normal. CT of neck and Head with no abnotmalities and no carotid dissection . can't explain neck pain though. ? muscular strain - tele till evening. patient is not willing to stay till Am - if no events , will refer to card for out pt prolonged cardiac monitoring - add zetia, LDL is not at goal - optimize blood pressure control . increase coreg . resume valsartan - neuro f/u as out pt 2- HTN, ad HLP, as above 3- DM : was not on meds as out pt . will check A1c and will decide on out pt regimen according to that advised for out pt ophth and podiatry f/u 4- Upper lobe pulmonary nodule seen on CT scan. need CT of chest as out pt and further w/u antonio refer to pulmonary 5- dispo ; dc in evening after some period of monitoring on tele
[2018-05-02 15:53] VITALS: BP 143/89; PULSE 74; TEMP 98.3
--- NOTE | 2018-05-02 16:31 | EKG ---
Test Reason : Blood Pressure : / mmHG Vent. Rate : 076 BPM Atrial Rate : 076 BPM P-R Int : 180 ms QRS Dur : 088 ms QT Int : 394 ms P-R-T Axes : 014 -35 -05 degrees QTc Int : 443 ms NORMAL SINUS RHYTHM LEFT AXIS DEVIATION VOLTAGE CRITERIA FOR LEFT VENTRICULAR HYPERTROPHY NONSPECIFIC T WAVE ABNORMALITY ABNORMAL ECG NO PREVIOUS ECGS AVAILABLE Confirmed by Jonah Lucas ([id number]) on 05/02/2018 4:30:47 PM Referred By: Confirmed By:Jonah Lucas
--- NOTE | 2018-05-02 20:04 | DS ---
Physical Exam: SUBJECTIVE: Patient seen and examined at bedside. Pt resting in bed, denies any acute complaints at this moment. Denies chest pain or shortness of breath. OBJECTIVE: Vital Signs Period Temp Pulse Resp BP Sys/Wilcox Pulse Ox Last 24 Hr 98 F-98.3 F 74-86 16-18 143-184/88-100 97-98 PHYSICAL EXAM GENERAL: NAD EYES: extraocular movements intact, sclera anicteric, conjunctiva clear. NECK: No JVD appreciated. LUNGS: CTAB. Good inspiratory effort HEART: RRR S1S2 ABDOMEN: NDNT EXTREMITIES: No CCE. 3+ knee jerk b/l. MSK: Strength 5/5 upper/lower extremities. SILT throughout. SKIN: Warm, dry, normal turgor, no rashes or lesions noted LABS Laboratory Results - last 24 hr 05/01/18 05/01/18 05/02/18 18:37 23:26 05:30 WBC 9.9 RBC 4.78 Hgb 14.2 Hct 40.0 MCV 83.7 MCH 29.6 MCHC 35.4 RDW 12.8 Plt Count 162 MPV 9.2 Absolute Neuts (auto) 6.5 Neutrophils % 65.5 Lymphocytes % 26.5 Monocytes % 6.3 Eosinophils % 1.3 Basophils % 0.4 Nucleated RBC % 0 Sodium 135 L Potassium 4.1 Chloride 98 Carbon Dioxide 28 Anion Gap 9 BUN 21 H Creatinine 1.4 H Creat Clearance w eGFR 51.02 POC Glucometer 351 Random Glucose 431 H* Hemoglobin A1c % Calcium 9.3 Phosphorus Magnesium Total Bilirubin 0.7 AST 12 L ALT 39 Alkaline Phosphatase 95 Creatine Kinase 125 Troponin I < 0.02 Total Protein 7.8 Albumin 4.0 Triglycerides 273 H Cholesterol 145 Total LDL Cholesterol 80 HDL Cholesterol 38 L Vitamin B12 TSH RPR Titer 05/02/18 05/02/18 05/02/18 05:30 08:24 08:24 WBC RBC Hgb Hct MCV MCH MCHC RDW Plt Count MPV Absolute Neuts (auto) Neutrophils % Lymphocytes % Monocytes % Eosinophils % Basophils % Nucleated RBC % Sodium 139 Potassium 3.9 Chloride 104 Carbon Dioxide 30 Anion Gap 5 L BUN 16 Creatinine 1.1 Creat Clearance w eGFR > 60 POC Glucometer Random Glucose 197 H Hemoglobin A1c % 9.6 H Calcium 8.3 L Phosphorus 2.9 Magnesium 2.0 Total Bilirubin 0.6 AST 13 L ALT 31 Alkaline Phosphatase 75 Creatine Kinase Troponin I Total Protein 6.8 Albumin 3.4 Triglycerides Cholesterol Total LDL Cholesterol HDL Cholesterol Vitamin B12 549 TSH 1.18 RPR Titer Nonreactive 05/02/18 05/02/18 11:19 16:37 WBC RBC Hgb Hct MCV MCH MCHC RDW Plt Count MPV Absolute Neuts (auto) Neutrophils % Lymphocytes % Monocytes % Eosinophils % Basophils % Nucleated RBC % Sodium Potassium Chloride Carbon Dioxide Anion Gap BUN Creatinine Creat Clearance w eGFR POC Glucometer 285 302 Random Glucose Hemoglobin A1c % Calcium Phosphorus Magnesium Total Bilirubin AST ALT Alkaline Phosphatase Creatine Kinase Troponin I Total Protein Albumin Triglycerides Cholesterol Total LDL Cholesterol HDL Cholesterol Vitamin B12 TSH RPR Titer HOSPITAL COURSE: Date of Admission:05/01/18 Pt is a 62 y/o gentleman w/a pmhx of HTN, HLD, CAD (s/p stents x2 placed 4 years ago) who presented to [facility] with neck pain and L upper and lower extremity weakness. Pt endorsed that he began to feel left upper and lower extremity weakness while he was in the ED which lasted for approximately 2-3 hours. Pt underwent imaging with a Head/Neck CTA which did not reveal any significant stenosis (Please see report for details). Furthermore, pt's blood glucose was noted to be in the 400's and his A1C was 9.6% (Pt stated he was not a diabetic and was not taking any medication for his DM). Pt was discharged on Metformin ER 1000 MG and Januvia 100 MG QD. Furthermore, pt's home carvedilol was increased to 25 MG PO BID. In addition, pt was started on Zetia in addition to his Lipitor for better LDL control. Pt was not taking any medication for his diabetes. Finally, pt was found to have an incidental pulmonary nodule in his left upper lung lobe on CT imaging. Pt was informed in detail that this may be a malignancy and that he should undergo a repeat CT scan of his chest within 3 months. Pt confirmed that he understood this. Date of Discharge: 05/02/18 Minutes to complete discharge: 35 Discharge Summary Reason For Visit: TRANSIENT ISCHEMIC ATTACK Condition: Improved - Instructions Diet, Activity, Other Instructions: You presented to the hospital due to severe pain and weakness in your left arm and left leg. You were found to have a temporary stroke called a "TIA" . Furthermore, while you were in the hospital, your blood sugar level was very elevated in the 400's. Your Hemoglobin A1C, which measures your blood sugar levels over a period of 3 months was 9.6 %. you will be sent home on Metformin ER 1000 MG per day. You will also be placed on another Diabetes medication called Januvia 100 mg daily . this will help in controlling your sugar. Please start the Metformin after 48 hours of discharge to protect your kidney as you have just received contrast with the images. While you were in the hospital, your Carvidolol medication was increased to 25 mg TWICE per day. You were placed on a cholesterol medication called Zetia 10 mg at bed time in addition to Lipitor 40 mg . Please drink plenty of fluid for next couple days to help clear the contrast from your body. check your sugar three times a day before each meal. take log to your doctor . please notify your doctor immediately if your sugar is > 300 . of < 80. Please follow up with [facility] Operations Clerk and [employer] Setter Supervisor on yearly base for diabetes complications. follow up with your primary within one week Please follow up with your monogram operator within 48 hours you need to be on heart monitor as out patient for any heart irregular rhythm. Please follow up with Neurologist Dr Pratt within one week. If you experience the same symptoms any weakness or slurry speech, please return to Emergency room immediately. You have a nodule found incidentally in your lung. you need to see lung doctor. Dr. Rothman for further imaging. and repeat chest CT in 3 months. if you feel very sweaty or your sugar below 100 dont take sugar meds and try to eat and come back to emergency room Referrals: Nick Pratt MD [Staff Physician] - 2 Weeks Sherice Taylor MD [Non Staff, Medical] - 1 Week Johann Sahu MD, MD [Staff Physician] - 1 Month Disposition: HOME - Home Medications Comprehensive Discharge Medication List: Ambulatory Orders Atorvastatin Ca [Lipitor] 40 mg PO HS 05/01/18 Prasugrel HCl 10 mg PO DAILY 05/01/18 Acetaminophen [Tylenol .Regular Strength -] 650 mg PO Q6H PRN tablet 05/02/18 Aspirin [ASA -] 81 mg PO DAILY #90 tab.chew 05/02/18 Carvedilol [Coreg -] 25 mg PO BID #90 tablet 05/02/18 Ezetimibe [Zetia -] 10 mg PO HS #90 tablet 05/02/18 Lancets [Lancets Thin] 1 each MC AC #200 each 05/02/18 Miscellaneous Medical Supply [Glucometer Device] 1 each SQ AC #1 kit 05/02/18 Miscellaneous Medical Supply [Glucometer Test Strips #100] 1 each SQ AC #1 box 05/02/18 Sitagliptin Phosphate [Januvia] 100 mg PO DAILY #60 tablet 05/02/18 Valsartan/Hydrochlorothiazide [Valsartan-Hctz 320-25 mg Tab] 1 each PO DAILY #1 tablet 05/02/18 metFORMIN HCL [Metformin ER Gastric] 1,000 mg PO DAILY #60 [id number] 05/02/18 This patient is new to me today: Yes Date on this admission: 05/02/18 Emergency Visit: Yes ED Registration Date: 05/01/18 Care time: The patient presented to the Emergency Department on the above date and was hospitalized for further evaluation of their emergent condition. Critical Care patient: No - Discharge Referral Referred to [facility] Med [facility] No
[2018-05-02] MEDS ORDERED: EZETIMIBE 10 MG TABLET (FP) PO SCH (22:00)
[2018-05-02] MEDS ORDERED: ATORVASTATIN CA 40 MG TABLET (FP) PO SCH (22:00)
== END 2018-05-02 17:12 | disposition home or self-care (01) ==
LOC: JER 17:52 → JERBED 22:17
PROVIDERS: ADMIT Internal Medicine; ATTEND Internal Medicine
PROC: 3E0333Z Introduction of Anti-inflammatory into Peripheral Vein, Percutaneous Approach (ICD-10-PCS; principal; 2018-05-01)
PROC: 3E0337Z Introduction of Electrolytic and Water Balance Substance into Peripheral Vein, Percutaneous Approach (ICD-10-PCS; 2018-05-01)
PROC: 3E013VG Introduction of Insulin into Subcutaneous Tissue, Percutaneous Approach (ICD-10-PCS; 2018-05-01)
PROC: 3E013GC Introduction of Other Therapeutic Substance into Subcutaneous Tissue, Percutaneous Approach (ICD-10-PCS; 2018-05-01)
DX: G45.9 Transient cerebral ischemic attack, unspecified (principal); R53.1 Weakness; M54.2 Cervicalgia; I10 Essential (primary) hypertension; E11.65 Type 2 diabetes mellitus with hyperglycemia; E78.5 Hyperlipidemia, unspecified; I25.10 Atherosclerotic heart disease of native coronary artery without angina pectoris; I25.2 Old myocardial infarction; R79.89 Other specified abnormal findings of blood chemistry; R91.1 Solitary pulmonary nodule; N17.9 Acute kidney failure, unspecified; E66.9 Obesity, unspecified; Z68.34 Body mass index [BMI] 34.0-34.9, adult; Z95.5 Presence of coronary angioplasty implant and graft; Z88.2 Allergy status to sulfonamides; Z88.8 Allergy status to other drugs, medicaments and biological substances
CPT/HCPCS: 36415; 70496-TC; 70498-TC; 71045-TC-FY; 80053; 80061; 82550; 82607; 82962; 83036; 83721; 83735; 84100; 84207; 84443; 84484; 85025; 86593; 93005; 93010; 93306-TC; 99285-25; G0378; J0131; J7030